=== PATIENT | female | born 1960 | race Caucasian/White ===

== ENCOUNTER 2020-05-15 10:33 | Outpatient (CLI) | payer BC, SELFPAY ==
--- NOTE | ~2020-05-15 | US_ITS ---
EXAMINATION: US venous doppler [facility] DATE: 05/15/2020 11:24 INDICATION: Left lower limb pain. TECHNIQUE: Grayscale ultrasound images without and with compression and Doppler ultrasound images of the left lower extremity veins were obtained. COMPARISON: None. FINDINGS: The visualized portions of left common femoral vein, profunda (deep) femoral vein, femoral vein, popl iteal vein, posterior tibial veins, and greater saphenous vein outflow are patent. IMPRESSION: 1. No deep venous thrombosis. Reviewed, dictated and finalized at location B.
== END 2020-05-15 10:34 | disposition home or self-care (01) ==
PROVIDERS: PCP Internal Medicine; Visit Provider Internal Medicine
DX: R52 Pain, unspecified (principal); R60.9 Edema, unspecified
CPT/HCPCS: 93971

== ENCOUNTER 2020-05-18 10:20 | Outpatient (CLI) | payer BC, SELFPAY ==
--- NOTE | ~2020-05-18 | NM_ITS ---
EXAMINATION: NM teresa stress w perfusion DATE: 05/18/2020 12:41 INDICATION: Chest pain. TECHNIQUE: Rest images were obtained following intravenous administration of 9.1 mCi Tc99m tetrofosmi n (Myoview). The patient was infused intravenously with Lexiscan (Regadenoson). Then, 28.1 mCi Tc99m tetrofosmin (Myoview) was administered intravenously, and stress images were obtained. Data was recon structed into short axis and horizontal and vertical long axis SPECT images. Gated SPECT images were also obtained.: Imaging unable to be obtained due to patient condition. COMPARISON: None. FINDINGS: Small moderate severity nonreversible perfusion defect involving the mid and basilar inferi or segments. Slightly larger moderate to severe nonreversible perfusion defect involving the mid and basilar anterior and mid anterolateral segments. Both lesions are consistent with infarct in the righ t coronary artery and left anterior descending coronary artery vascular distributions respectively. N o reversible ischemia appreciated. There is normal left ventricular chamber size, wall motion and eje ction fraction. Left ventricular ejection fraction measures 69%. IMPRESSION: 1. 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 No reversible ischemia.. 2. Left ventricular ejection fraction measuring 69%. Reviewed, dictated and finalized at location A. IMPRESSION: 1. 2 separate nonreversible infarcts involving portions of the right coronary a rtery and left anterior descending coronary artery vascular distributions. No r eversible ischemia.. 2. Left ventricular ejection fraction measuring 69%.
--- NOTE | 2020-05-18 11:16 | EST_ITS ---
Patient Info Name: Nena Stevens Age: 59 years : 1960 Gender: Female Ht: 70 in Wt: 340 lbs BSA: 2.84 m2 Exam Date: 05/18/2020 11:34 AM Exam Location: [facility] Stress Patient Status: Outpatient Admit Date: 05/18/2020 Staff Ordering Physician: Jamshid Malik DO Attending Provider: Jamshid Malik DO Exercise Technologist: Jennifer Hernandez RDCS Exercise Physician: Lavon Reynolds DO Exam Type: CA stress teresa w NM Study Info Indications R07.9 - Chest pain, unspecified A regadenoson stress test was performed. Summary 1. 1. Negative lexiscan stress test for ischemic ST changes by ECG criteria. 2. 2. Stable hemodynamics throughout the test. 3. 3. Nuclear scan to follow and will be reported separately. Please correlate with it. 4. 4. Patient informed of the above results. Protocol: Lexiscan Stress ECG Details Stage: REST Duration (min): 8 min : 20 sec HR (bpm): 67 SBP (mmHg): 127 DBP (mmHg): 69 Stage: REST Duration (min): 24 min : 3 sec HR (bpm): 67 SBP (mmHg): 127 DBP (mmHg): 69 Stage: STAGE 1 Duration (min): 1 min : 0 sec HR (bpm): 85 SBP (mmHg): 127 DBP (mmHg): 69 Stage: RECOVERY Duration (min): 1 min : 0 sec HR (bpm): 95 SBP (mmHg): 177 DBP (mmHg): 76 Stage: RECOVERY Duration (min): 2 min : 0 sec HR (bpm): 90 SBP (mmHg): 177 DBP (mmHg): 76 Stage: RECOVERY Duration (min): 3 min : 0 sec HR (bpm): 91 SBP (mmHg): 177 DBP (mmHg): 76 Stage: RECOVERY Duration (min): 3 min : 34 sec HR (bpm): 87 SBP (mmHg): 165 DBP (mmHg): 66 Rest HR: 67 bpm Peak HR: 96 bpm Rest Sys BP: 127 mmHg Peak Sys BP: 177 mmHg Max Pred HR: 162 bpm % Max Pred HR: 59 % Target HR: 138 bpm Max RPP: 16,992 bpm*mmHg Termination Reason: Completed protocol Cardiac Symptoms: Shortness of breath Total Time: 1 min : 0 sec Rest Sutherland BP: 69 mmHg Peak Sutherland BP: 76 mmHg Total Dose: 0.4 mg Resting ECG Sinus rhythm. Stress ECG No ST changes. Arrhythmias None. Report Signatures
== END 2020-05-18 10:21 | disposition home or self-care (01) ==
PROVIDERS: PCP Internal Medicine; Visit Provider Internal Medicine
DX: R07.9 Chest pain, unspecified (principal); I21.9 Acute myocardial infarction, unspecified
CPT/HCPCS: 78452; 93017; A9502; J2785

== ENCOUNTER 2020-07-30 12:32 | Outpatient (CLI) | payer BC, SELFPAY ==
--- NOTE | 2020-07-30 13:03 | ECHO_ITS ---
Patient Info Name: Nena Stevens Age: 60 years : 1960 Gender: Female Ht: 70 in Wt: 350 lbs BSA: 2.89 m2 HR: 63 bpm BP: 189 / 109 mmHg Technical Quality: Good Exam Date: 07/30/2020 1:21 PM Exam Location: [facility] Patient Status: Outpatient Admit Date: 07/30/2020 Staff Ordering Physician: Lavon Reynolds DO Early Childhood Teacher Assistant: Gasper Wang, MATTHEW, RT Attending Provider: Lavon Reynolds DO Referring Physician: Rodolfo WATTS; Exam Type: CA echo dop color flow w con Study Info Indications R00.2 - Palpitations Complete two-dimensional, color flow and Doppler transthoracic echocardiogram is performed with contrast to opacify the left ventricle and to improve the deliniation of the left ventricle endocardial borders. Summary 1. Left ventricular chamber dimension is mildly enlarged. 2. Definity contrast administered improved wall motion interpretation. 3. Left ventricular systolic function is normal, estimated at 60-65%. 4. There is mildly increased left ventricular wall thickness. 5. The left ventricular diastolic function is grade I diastolic dysfunction. 6. E/e' 9 is minimally elevated. 7. Global longitudinal strain is abnormal at -10.4%. 8. Left atrial chamber dimension is mildly enlarged. Left Ventricle E/e' 9 is minimally elevated. Global longitudinal strain is abnormal at -10.4%. Definity contrast administered improved wall motion interpretation. Left ventricular chamber dimension is mildly enlarged. Left ventricular systolic function is normal, estimated at 60-65%. There is mildly increased left ventricular wall thickness. The left ventricular diastolic function is grade I diastolic dysfunction. Right Ventricle Right ventricular chamber dimension is normal. Right ventricular systolic function is normal. Left Atria Left atrial chamber dimension is mildly enlarged. Right Atria Right atrial chamber dimension is normal. Aortic Valve The aortic valve is trileaflet. There is no aortic valve stenosis. There is no aortic valve regurgitation. Pulmonic Valve There is no pulmonic regurgitation. Mitral Valve There is no mitral valve stenosis. There is no mitral valve regurgitation. Tricuspid Valve There is no tricuspid valve regurgitation. Pericardium/Pleural There is no pericardial effusion. Inferior Vena Cava Normal inferior vena cava with >50% collapse upon inspiration consistent with normal right atrial pressure, 5 mmHg. Aorta The aortic root size at the sinus of Valsalva is normal. Left Ventricular Outflow Tract Name Value Normal LVOT 2D LVOT Diameter 2.10 cm LVOT Doppler LVOT Peak Gradient 4 mmHg LVOT Mean Gradient 2 mmHg LVOT VTI 24.91 cm LVOT VTI/AV VTI Ratio 0.93 LVOT Stroke Volume 86.17 ml LVOT CO 5.59 l/min LVOT CI 1.94 L/min/m2 Mitral Valve Name Value
[2020-07-30] MEDS: PERFLUTREN LIPID MICROSPHERES 1.5 ML VIAL DILUTED TO 10 ML TOTAL VOLUME IV PUSH (14:12)
== END 2020-07-30 12:33 | disposition home or self-care (01) ==
PROVIDERS: PCP Internal Medicine; Visit Provider Internal Medicine Cardiovascular Disease
DX: R00.2 Palpitations (principal)
CPT/HCPCS: C8929

== ENCOUNTER 2021-01-22 09:58 | Emergency (ER) | payer BC, SELFPAY ==
[2021-01-22] VITALS (14 sets, daily range): BP systolic 128–185; BP diastolic 74–93; PULSE 66–75; RESP 16–22; TEMP 36.4; O2SAT 94–98
--- NOTE | ~2021-01-22 | CT_ITS ---
EXAMINATION: CT abdomen pelvis w con DATE: 01/22/2021 12:59 INDICATION: Left flank pain. Nausea. TECHNIQUE: Computed tomography (CT) of the abdomen and pelvis was performed with 100 mL Omnipaque 350 intravenous contrast. Automated exposure control and iterative reconstruction technique were employe d. The dose-length product was 1607.38 mGy-cm. COMPARISON: CT abdomen and pelvis 02/20/2016 FINDINGS: The visualized portions of the lung bases demonstrate mild atelectasis. No pleural effusion . The heart size is normal. No pericardial effusion. The liver is normal. There are gallstones in the gallbladder, which is distended. The spleen, pancreas, adrenal glands, and left kidney are normal. T here is a 1.9 cm cyst in right kidney. There are no dilated loops of bowel. The appendix is normal. T here are no pathologically enlarged lymph nodes. There is no free intraperitoneal fluid. There is sev ere lumbar spondylosis. IMPRESSION: 1. Cholelithiasis. Gallbladder distention may be secondary to fasting. Correlate with physical exam f or evidence of acute cholecystitis. Reviewed, dictated and finalized at location B. IMPRESSION: 1. Cholelithiasis. Gallbladder distention may be secondary to fasting. Correlat e with physical exam for evidence of acute cholecystitis.
--- NOTE | ~2021-01-22 | US_ITS ---
EXAMINATION: US abdomen limited DATE: 01/22/2021 13:34 INDICATION: Upper abdominal pain. Gallstones. TECHNIQUE: Multiple grayscale and Doppler ultrasound images of the abdomen were obtained. COMPARISON: CT dated 01/22/2021 FINDINGS: The pancreatic head and body are normal in appearance. The pancreatic tail is not visualized. The vi sualized proximal aorta and inferior vena cava are normal. Liver has normal echogenicity and contour, with a smooth surface. No liver lesion identified. No intrahepatic biliary duct dilation suspected. Portal venous flow was seen in the hepatopetal, normal direction and has normal Doppler waveform. Mul tiple small echogenic and shadowing gallstones along the dependent wall of the otherwise normal-appea ring gallbladder. Sonographic Wang sign was reported as negative by the logistical engineer. The common perry e duct measures 3-4 mm in maximal diameter. Right kidney measures 11.1 x 5.3 x 5.8 cm with normal ech ogenicity and contour and no hydronephrosis. IMPRESSION: 1. Cholelithiasis. Reviewed, dictated and finalized at location A. IMPRESSION: 1. Cholelithiasis.
[2021-01-22 10:29] LABS: Basophils Absolute Auto 0.1 K/mm3 (0.0-0.1); Basophils Percent Auto 0.8 % (0.2-1.2); Eosinophils Percent Auto 0.4 % (0-4.4); Hematocrit 41.2 % (37.0-47.0); Hemoglobin 13.1 g/dL (12.0-15.0); Immature Granulocyte Absolute 0.03 K/mm3 (0.00-0.031); Immature Granulocyte Percent A 0.4 % (0-0.5); Lymphocytes Absolute Auto 1.64 K/mm3 (0.9-3.2); Lymphocytes Percent Auto 22.8 % (18.3-44.2); Mean Corpuscular HGB Conc 31.8 g/dl (32-36); Mean Corpuscular Hemoglobin 27.1 pg (26-34); Mean Corpuscular Volume 85.1 fl (80-100); Mean Platelet Volume 10.4 fl (7.4-10.4); Monocytes Absolute Auto 0.4 K/mm3 (0.1-0.6); Monocytes Percent Auto 5.3 % (2.6-8.5); Neutrophils Absolute Auto 5.1 K/mm3 (1.3-6.7); Neutrophils Percent Auto 70.3 % (45.5-73.1); Platelet Count Result 290 k/mm3 (150-375); Red Blood Count 4.84 M/mm3 (4.2-5.4); Red Cell Distribution Width 14.7 % (11.5-14.5); White Blood Count 7.2 K/mm3 (4.5-10.0)
[2021-01-22 10:40] LABS: Anion Gap 7 mmol/L (8-16); Blood Urea Nitrogen 15 mg/dL (7-17); Calcium 8.9 mg/dL (8.4-10.2); Carbon Dioxide 24 mmol/L (22-30); Chloride 106 mmol/L (98-107); Estimated CRCL calculation 123 ml/min; Estimated Glomerular Filt Rate > 60; Glucose 129 mg/dL (65-105); Potassium 4.3 mmol/L (3.4-5.0); Sodium 137 mmol/L (137-145)
[2021-01-22 11:53] LABS: Add Urine Microscopic? YES; Appearance Urine Cloudy (Clear); Bacteria Urine Trace /hpf; Bilirubin Urine Negative (Negative); Blood Urine Negative (Negative); Color Urine Yellow (Yellow); Glucose Urine UA Negative (Negative); Ketones Urine Negative (Negative); Leukocyte Esterase Ur Negative LEU/UL (Negative); Mucus Urine Rare /lpf; Nitrate Urine Negative (Negative); Protein Urine 2+ mg/dL (Negative); RBC Urine 0-2 /hpf (0-2); Specific Grav Ur 1.025 (1.001-1.035); Squamous Epithelial Cell Urine Occasional /hpf (Few); Urobilinogen Urine Negative mg/dL (<2.0); WBC Urine 0-3 /hpf
--- NOTE | 2021-01-22 12:42 | ED.BACK ---
HPI - Back Pain/Injury General Chief Complaint: Back Pain/Injury Stated Complaint: left flank pain Time Seen by Provider: 01/22/21 11:56 Source: patient Mode of arrival: ambulatory Limitations: no limitations History of Present Illness HPI Narrative: This is a 60 year old female that presents to the ER for left flank pain and upper abdominal pain since this morning. The pain is a constant dull ache and intermittently sharp. Associated with nausea. Denies fever, chest pain, shortness of breath, vomiting, or dysuria. Related Data Home Medications Medication Instructions Recorded Confirmed mecobalamin (vitamin B12) 5,000 5,000 mcg PO DAILY tablet 05/14/20 09/03/20 mcg disintegrating tablet Allergies Allergy/AdvReac Type Severity Reaction Status Date / Time cephalexin Allergy Severe rash, Verified 09/03/20 11:05 hives, projectile vomiting propranolol Allergy Severe Seizure Verified 09/03/20 11:05 levofloxacin Allergy Intermediate Hives Verified 09/03/20 11:05 diclofenac Allergy Mild Unknown Verified 09/03/20 11:05 isosorbide Allergy Mild Unknown Verified 09/03/20 11:05 Cephalosporins AdvReac Severe N/V; OUT Verified 09/03/20 11:05 OF BODY FEELING Review of Systems Review of Systems: Narrative: CONSTITUTIONAL: Denies fever CARDIOVASCULAR: Denies chest pain, or edema. RESPIRATORY: Denies dyspnea. GASTROINTESTINAL: Reports abdominal pain, nausea. Denies vomiting, or diarrhea. GENITOURINARY: Denies dysuria or hematuria. SKIN: Denies rash MUSCULOSKELETAL: Reports back pain, joint pain, and myalgia. NEUROLOGIC: Denies numbness, or weakness. All systems reviewed & are unremarkable except as noted in HPI and below PMFSH Past Medical History Medical History (Updated 01/22/21 @ 16:18 by Meagan Llamas PA-C) Hyperlipidemia Hypertension Family History Family History Mother Cerebrovascular accident Sibling Family history of diabetes mellitus in first degree relative Family history of liver disease Social History Social History Smoking packs per day: 1 Smoking cigarettes per day: 20.0 Years smoked: 30 Smoking pack-years: 30.00 Smoking status: Former smoker Tobacco type: cigarettes Second hand tobacco smoke exposure: No Smoking end date: 10/05/07 Alcohol intake: never Substance use: never Gender identity (if verbalized by the patient): Female Exam Narrative: Exam Narrative: GENERAL: Well-appearing, well-nourished, and in no acute distress. HEAD: Normocephalic, atraumatic. EYES: EOMI. CHEST: Clear to auscultation. No respiratory distress. No wheezes rales or rhonchi HEART: Regular rate and rhythm. No murmur heard. Normal peripheral pulses. ABDOMEN: Soft, nondistended, normal active bowel sounds. Mild tenderness palpation epigastrium, without guarding. No CVA tenderness EXTREMITIES: Normal range of motion. No edema. SKIN: Warm, dry, no rash. NEURO: No focal deficits. Alert and oriented x3. Normal gait PSYCH: Normal mood and affect Course Vital Signs Vital signs: Vital Signs Temperature 97.6 F 01/22/21 10:10 Pulse Rate 74 01/22/21 10:10 Respiratory Rate 17 01/22/21 10:10 Blood Pressure 143/87 H 01/22/21 10:10 Pulse Oximetry 98 01/22/21 10:10 Temperature 97.6 F 01/22/21 10:10 Pulse Rate 71 01/22/21 15:00 Respiratory Rate 16 01/22/21 15:00 Blood Pressure 128/87 01/22/21 15:02 Pulse Oximetry 96 01/22/21 15:02 MDM - Back Pain/Injury Lab Data Attestation: I reviewed the patient's lab results. Result diagrams: 01/22/21 10:17 01/22/21 10:17 Labs: Lab Results 01/22/21 01/22/21 01/22/21 Range/Units 10:17 10:17 10:17 WBC 7.2 (4.5-10.0) K/mm3 RBC 4.84 (4.2-5.4) M/mm3 Hgb 13.1 (12.0-15.0) g/dL Hct 41.2 (37.0-47.0) % MCV 85.1 (80-100) fl MCH 27.
--- NOTE | 2021-01-22 12:44 | PC.NURSE ---
Andreina Reese, added on hepatic and lipase [id number]
--- NOTE | 2021-01-22 12:57 | PC.NURSE ---
Pt in ct at this time, will medicate per provider order upon return.
[2021-01-22] MEDS: ONDANSETRON INJ 4 MG/2 ML VIAL IV PUSH (13:04)
[2021-01-22] MEDS: MORPHINE SULFATE (*CRX) 4 MG/ML INJ IV PUSH (13:04)
--- NOTE | 2021-01-22 13:24 | PC.NURSE ---
Pt at ultrasound at this time.
[2021-01-22 13:29] LABS: Alanine Aminotransferase 16 U/L (4-35); Albumin Level 4.2 g/dL (3.5-5.1); Alkaline Phosphatase 98 U/L (38-126); Aspartate Amino Transferase 37 U/L (14-36); Bilirubin,Total 0.5 mg/dL (0.2-1.3); Lipase 43 U/L (23-300)
[2021-01-22] MEDS: diazePAM INJ (*CRX) 10 MG/2 ML SYRINGE 5 MG IV PUSH (15:31)
== END 2021-01-22 16:30 | disposition home or self-care (01) ==
PROVIDERS: Physician Assistant; Emergency Provider Emergency Medicine; PCP Internal Medicine
DX: K80.20 Calculus of gallbladder without cholecystitis without obstruction (principal); Z87.891 Personal history of nicotine dependence; I10 Essential (primary) hypertension; E78.5 Hyperlipidemia, unspecified
CPT/HCPCS: 36415; 74177; 76705; 80048; 80076; 81001; 83690; 85025; 96374; 96375; 99284; J0131; J2270; J2405; J3360; Q9967

== ENCOUNTER 2021-02-24 10:22 | Outpatient (CLI) | payer BC, SELFPAY ==
--- NOTE | ~2021-02-24 | MR_ITS ---
EXAMINATION: MR lumbar spine wo con DATE: 02/24/2021 11:26 INDICATION: Dorsalgia, unspecified. Weakness of the lower extremities. Pain in the legs. TECHNIQUE: Magnetic resonance imaging (MRI) of the lumbar spine was performed without intravenous con trast. Sequences included sagittal T2-weighted FSE, sagittal T2-weighted FS FSE, sagittal T1-weighted FSE, and axial T2-weighted FSE. COMPARISON: Lumbar spine MRI 11/08/2016 FINDINGS: There is 10 degrees levoscoliosis of lumbar spine. There is 3 mm retrolisthesis of L1 on L2 , L2 on L3, and L3 on L4, 3 mm anterolisthesis of L4 on L5, and 4 mm anterolisthesis of L5 on S1. Elda tebral body heights are normal. There is moderately decreased disc height at T12-L1, L1-L2, and L2-L3 , severely decreased disc at L3-L4, moderately decreased disc height at L4-L5, and severely decreased disc height at L5-S1 with endplate remodeling. The distal spinal cord signal intensity is normal. Th e conus medullaris is at L1-L2. The following disc levels are specifically discussed: L1-L2: The disc is bulging. There is moderate right and mild left facet joint osteoarthritis. There i s mild bilateral neural foraminal stenosis. There is mild central canal stenosis. L2-L3: The disc is bulging and has an annular fissure. There is severe right and mild left facet join t osteoarthritis. There is mild bilateral neural foraminal stenosis. There is mild central canal sten osis. L3-L4: The disc is bulging and has an annular fissure. There is severe right and moderate left facet joint osteoarthritis. There is mild bilateral neural foraminal stenosis. There is mild central canal stenosis. L4-L5: The disc is bulging. There is severe bilateral facet joint osteoarthritis. There is moderate r ight and mild left neural foraminal stenosis. There is moderate central canal stenosis. L5-S1: The disc is bulging and has an annular fissure. There is ankylosis of the facet joints with se pavan hypertrophy. There is mild bilateral neural foraminal stenosis. There is mild central canal sten osis. IMPRESSION: 1. Severe lumbar spondylosis, stable from 11/08/2016. 2. Lumbar levoscoliosis. Reviewed, dictated and finalized at location B.
== END 2021-02-24 10:23 | disposition home or self-care (01) ==
PROVIDERS: PCP Internal Medicine; Visit Provider Internal Medicine
DX: M47.817 Spondylosis without myelopathy or radiculopathy, lumbosacral region (principal); M48.07 Spinal stenosis, lumbosacral region
CPT/HCPCS: 72148

== ENCOUNTER → 2021-03-11 00:29 | Outpatient (CLI) | payer BC, SELFPAY ==
[2021-03-11 21:52] LABS: SARS-CoV-2 RNA PCR Negative
== END ==
PROVIDERS: PCP Internal Medicine; Visit Provider Surgery
DX: Z01.812 Encounter for preprocedural laboratory examination (principal); Z20.822 Contact with and (suspected) exposure to COVID-19
CPT/HCPCS: C9803; U0003; U0005

== ENCOUNTER 2021-03-11 08:11 | Outpatient (CLI) | payer BC, SELFPAY ==
[2021-03-11 09:10] LABS: Alanine Aminotransferase 16 U/L (4-35); Albumin Level 3.9 g/dL (3.5-5.1); Alkaline Phosphatase 97 U/L (38-126); Amylase 44 U/L (30-110); Aspartate Amino Transferase 20 U/L (14-36); Bilirubin,Total 0.2 mg/dL (0.2-1.3); Lipase 54 U/L (23-300)
== END 2021-03-11 08:12 | disposition home or self-care (01) ==
LOC: ANHSURGERY 08:13
PROVIDERS: PCP Internal Medicine; Visit Provider Surgery
DX: K80.10 Calculus of gallbladder with chronic cholecystitis without obstruction (principal); Z53.31 Laparoscopic surgical procedure converted to open procedure; Z01.812 Encounter for preprocedural laboratory examination
CPT/HCPCS: 36415; 80076; 82150; 83690; 86850; 86900; 86901

== ENCOUNTER 2021-03-14 18:10 | Observation (INO) | payer BC, SELFPAY ==
[2021-03-07 16:14] VITALS: BMI 50.3
--- NOTE | 2021-03-13 09:10 | WPDANESEPPF ---
Anes - Initial Pre Proc Eval Procedure: Operation Date: 03/14/21 13:00 Proposed Procedures p Laparoscopic Cholecystectomy - Simran Orellana MD Date/Time: 03/13/21 09:10 Surgeon: Simran Orellana MD Pre Op Diagnosis: chronic cholecystitis Patient Data Age: 60 Gender: F Height: 1.78 m Weight: 159 kg Allergies Allergy/AdvReac Type Severity Reaction Status Date / Time cephalexin Allergy Severe rash, Verified 03/05/21 15:23 hives, projectile vomiting isosorbide Allergy Severe Seizure Verified 03/14/21 11:07 propranolol Allergy Severe Seizure Verified 03/05/21 15:23 levofloxacin Allergy Intermediate Hives Verified 03/05/21 15:23 diclofenac Allergy Mild Gastrointestinal Verified 03/14/21 11:07 Upset Cephalosporins AdvReac Intermediate N/V; OUT Verified 03/14/21 11:07 OF BODY FEELING/hives Home Medications Medication Instructions Recorded Confirmed Type omeprazole 20 mg capsule,delayed 20 mg PO DAILY #90 cap 10/02/20 03/14/21 Rx release diazepam 10 mg tablet 10 mg PO DAILY PRN #30 tablet 11/07/20 03/14/21 Rx metoprolol succinate 100 mg 100 mg PO DAILY #90 tablet 02/04/21 03/14/21 Rx tablet,extended release 24 hr hydrocodone 10 mg-acetaminophen 1 tablet PO Q6H PRN #28 tablet 02/22/21 03/14/21 Rx 325 mg tablet Other Studies: Slasher Tender:: 07/24/20 CTA heart at [facility]: Plaque in origin of RCA but no significant stenosis; calcium score 7. Echo/MUGA:: 07/30/20 Echo: EF 60-65%, mild LVH, grade I diastolic dysfunction (E/e' 9), mild LAE. Electrophysiology:: 07/06/20 28 days event monitor: Sinus rhythm, HR range 50-156 bpm; average 76 bpm; <1% PAC's and PVC's; 5 SVT, fastest at 156 bpm and longest lasting 24 beats. 07/06/20 EKG: Sinus rhythm. Exam Date: 07/30/2020 1:21 PM Exam Type: CA echo dop color flow w con Complete two-dimensional, color flow and Doppler transthoracic echocardiogram is performed with contrast to opacify the left ventricle and to improve the deliniation of the left ventricle endocardial borders. Summary 1. Left ventricular chamber dimension is mildly enlarged. 2. Definity contrast administered improved wall motion interpretation. 3. Left ventricular systolic function is normal, estimated at 60-65%. 4. There is mildly increased left ventricular wall thickness. 5. The left ventricular diastolic function is grade I diastolic dysfunction. 6. E/e' 9 is minimally elevated. 7. Global longitudinal strain is abnormal at -10.4%. 8. Left atrial chamber dimension is mildly enlarged. Date of Service: 05/18/20 Procedure(s): NM teresa stress w perfusion FINDINGS: Small moderate severity nonreversible perfusion defect involving the mid and basilar inferior segments. Slightly larger moderate to severe nonreversible perfusion defect involving the mid and basilar anterior and mid anterolateral segments. Both lesions are consistent with infarct in the right coronary artery and left anterior descending coronary artery vascular distributions respectively. No reversible ischemia appreciated. There is normal left ventricular chamber size, wall motion and ejection fraction. Left ventricular ejection fraction measures 69%. IMPRESSION: 1. 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 No reversible ischemia.. 2. Left ventricular ejection fraction measuring 69%. Patient hx anesthesia problems: none Family hx anesthesia problems: none [facility] Past Medical History Medical History (Updated 03/13/21 @ 09:22 by Adeel Caldwell MD) Arthritis Asthma BMI 50.0-59.9, adult CAD (coronary artery disease) Chronic low back pain Gall stones Gallbladder disorder GERD (gastroesophageal reflux disease) Hyperlipidemia Hypersomnia Hypertension Lower extremity surgery planned Morbid obesity Morbid obesity with BMI of 50.0-59.9, adult PSVT (paroxysmal supraventricular tachycardia)
[2021-03-14] VITALS (22 sets, daily range): BP systolic 134–179; BP diastolic 61–95; PULSE 61–79; RESP 12–20; TEMP 36.3–36.6; O2SAT 93–98; BMI 51.5
[2021-03-14] MEDS: ACETAMINOPHEN 500 MG TABLET 1000 MG PO (11:33)
[2021-03-14] MEDS: LACTATED RINGERS 1,000 ML 30 ML IV CONT ×3 (11:54→16:45)
--- NOTE | 2021-03-14 12:02 | WPDHPUPDATE1 ---
History and Physical Update Update Date/Time: 03/14/21 12:02 History and Physical has been reviewed, including an updated exam of the patient. There are NO changes in the patient's condition. Risks, benefits, and alternatives have been discussed and questions answered. Patient agrees to proceed with procedure.
[2021-03-14] MEDS: KETOROLAC 15 MG/ML VIAL (*BKC) IV PUSH (12:14)
[2021-03-14] MEDS: CLINDAMYCIN 900 MG/D5W 50 ML 900 MG/50 ML PIGGYBACK 50 MG IVPB (13:20)
[2021-03-14] MEDS: BUPIVACAINE/EPINEPHRINE 0.5% 10 ML VIAL 50 ML INFILTRATE (13:54)
[2021-03-14] MEDS: HYDROmorphone HCL INJ (*CRX) 1 MG/ML SYR 0.25 MG IV PUSH ×12 (14:49→16:58)
--- NOTE | 2021-03-14 14:49 | W.PM.PROC2 ---
Procedure Note - Detailed Date of Procedure 03/14/21 Pre-op Diagnosis cholecystitis, cholelithiasis Post-op Diagnosis same Procedure Performed Laparoscopic cholecystectomy Surgeon Simran Orellana MD Anesthesia general Indications 60-year-old female presented to the office complaining of postprandial right upper quadrant abdominal pain associated with nausea and vomiting. Workup including imaging significant for cholecystitis, cholelithiasis. Findings Cholecystitis with cholelithiasis Description of Procedure The patient was taken to the operating room placed in the supine position. After adequate induction of general anesthesia, the patient was prepped and draped in normal sterile fashion. A time-out was then performed to verify the patient's identity as well as the procedure being performed. I then made a 5 mm incision in the infraumbilical region. Through this, a Veress needle was placed into the peritoneal cavity and CO2 gas was then insufflated. After adequate pneumoperitoneum was achieved, the Veress needle was removed and a 5 mm optiview trocar was placed through this incision under direct visualization. I then placed the laparoscope through this trocar site and under direct visualization placed a further 12 mm subxiphoid port as well as 2 additional 5 mm ports in the right upper abdomen. The gallbladder was then identified and was noted to be moderately inflamed, distended, and full of gallstones. I was able to place a grasper at the dome of the gallbladder and this was retracted anterior and cephalad up over the liver. A 2nd retractor was then placed at the infundibulum and retracted laterally, this allowed visualization of the triangle of Calot. I then was able to visualize the cystic duct in its entirety from its proximal insertion into the gallbladder, to its distal junction with the common hepatic/common bile duct junction. At this point, I carefully skeletonized the proximal cystic duct with the [place] dissector. I then clipped and transected the proximal cystic duct. Next I visualized the cystic artery. Again the artery was skeletonized, clipped, and transected. I then used the Bovie cautery to take down the peritoneal attachments of the gallbladder off the liver bed. This was somewhat difficult given the amount of inflammation in the posterior space. Once the gallbladder specimen was completely detached, an endo-pouch was placed through the 12 mm port site. I then placed the gallbladder specimen into the Endo pouch and removed the endo-pouch from the 12 mm port site. The specimen will now be sent to pathology for further review. I then copiously irrigated the right upper quadrant. Some mild oozing was noted in the liver bed and this was controlled with the bovie cautery. I then placed some hemostatic powder in the liver bed. Hemostasis was noted in the liver bed, the clips were noted to be in good position on both the cystic duct stump and the cystic artery stump. No other pathology was noted in the right upper quadrant. I then moved the laparoscope to the subxiphoid port. No iatrogenic injury or other pathology was noted in the lower abdomen. I then closed the 12 mm trocar site under direct visualization using the Ghulam cone and 0 Vicryl suture. At this point, the abdomen was desufflated and all ports removed. All port sites were then closed with 4.O Monocryl subcuticular sutures. Dermabond was placed on each incision. The patient tolerated the procedure well, was extubated in the operating room postoperative and will be transferred to the recovery room in stable condition Estimated Blood Loss 20 Drains No Packing No Pathology yes Complications No immediate complications Condition stable Disposition PACU
[2021-03-14] MEDS: fentaNYL CITRATE INJ (*CRX) 100 MCG/2 ML VIAL 25 MCG IV PUSH ×14 (15:12→17:52)
[2021-03-14] MEDS: ONDANSETRON INJ 4 MG/2 ML VIAL IV PUSH (15:39)
--- NOTE | 2021-03-14 16:49 | SUR.PHASEI ---
4418- Call to Dr. Orellana to notify him patient experiencing pain to abdomen with no relief from 2.5MG dilaudid IV push and 275MCG fentanyl with stable vital signs. Spoke with Dr. Caldwell, anesthesiologist to obtain additional orders for pain medication. Orders increased for pain medication 4MG dilaudid and 400MCG fentanyl max dosing per Dr. Caldwell. Per Dr. Orellana administer pain medication and continue to monitor patient closely. Notify Dr. Orellana if pain does not subside.
--- NOTE | 2021-03-14 17:57 | SUR.PHASEII ---
2215- Call to Dr. Orellana to notify him patient experiencing pain to right abdomen surgical site despite IV medications being given. A total of 350MCG of fentanyl IVP given to patient at this time and 3MG total of dilaudid IVP. Patient given 50MCG fentanyl IVP in outpatient recovery with no relief to pain and patient not maintaining oxygen saturations on room air. Patient placed on 2 liters nasal cannula and maintaining oxygen saturation in mid to high 90's with vitals being stable otherwise. Clarified with Dr. Orellana the plan of care for patient and obtained orders for patient to be admitted to med/surg overnight for observation to help with pain control and monitoring of vital signs. Per Dr. Orellana this RN to place orders for diet- ADAT; clear liquids to heart healthy beginning with dinner, blood work for 6/11 AM- CBC and BMP, pain medication regimen- Dilaudid 1MG IVP Q2HR PRN for pain rated 7-10, 2 [place] 5-325MG tablets PO PRN pain rated 4-6. 0568- Patient and [place] updated on plan and agree with Dr. Orellana's orders to stay overnight for observation and pain control.
--- NOTE | 2021-03-14 19:00 | ADMGEN ---
This patient, Nena Stevens, was admitted to -. Patient/family oriented to hospital policies and general routines including ID bracelet, bed and alarms, visiting hours, pain management, procedures, bathroom and other care routines, personal items, smoking policy, room service/diet, and visiting hours. Information on how to activate the Rapid Response Team has been discussed. Patient/Family are encouraged to report perceived risks to care and to ask questions if they do not understand what they are told or what they should do.
[2021-03-14] MEDS: HYDROmorphone HCL INJ (*CRX) 1 MG/ML SYR IV PUSH (19:54)
[2021-03-14] MEDS: HYDROcodone/acetaminophen (*CRX) 5-325 MG TABLET 2 TAB PO (20:52)
[2021-03-15] MEDS: HYDROmorphone HCL INJ (*CRX) 1 MG/ML SYR IV PUSH (02:42)
[2021-03-15 05:50] VITALS: BP 146/68; PULSE 67; RESP 22; TEMP 36.3; O2SAT 96
[2021-03-15 06:06] LABS: Basophils Percent Auto 0.2 % (0.2-1.2); Hematocrit 40.1 % (37.0-47.0); Hemoglobin 12.7 g/dL (12.0-15.0); Immature Granulocyte Absolute 0.07 K/mm3 (0.00-0.031); Immature Granulocyte Percent A 0.6 % (0-0.5); Lymphocytes Absolute Auto 0.82 K/mm3 (0.9-3.2); Lymphocytes Percent Auto 7.2 % (18.3-44.2); Mean Corpuscular HGB Conc 31.7 g/dl (32-36); Mean Corpuscular Hemoglobin 27.1 pg (26-34); Mean Corpuscular Volume 85.7 fl (80-100); Mean Platelet Volume 10.7 fl (7.4-10.4); Monocytes Absolute Auto 0.6 K/mm3 (0.1-0.6); Platelet Count Result 303 k/mm3 (150-375); Red Blood Count 4.68 M/mm3 (4.2-5.4); White Blood Count 11.4 K/mm3 (4.5-10.0)
[2021-03-15 06:21] LABS: Anion Gap 10 mmol/L (8-16); Blood Urea Nitrogen 17 mg/dL (7-17); Calcium 8.5 mg/dL (8.4-10.2); Carbon Dioxide 23 mmol/L (22-30); Chloride 107 mmol/L (98-107); Estimated CRCL calculation 125 ml/min; Estimated Glomerular Filt Rate > 60; Glucose 136 mg/dL (65-105); Potassium 4.7 mmol/L (3.4-5.0); Sodium 140 mmol/L (137-145)
--- NOTE | 2021-03-15 08:29 | WPDANESPN ---
Anes - Prog Note Post-Op Date/Time: 03/15/21 08:29 Cardiovascular status: normal Respiratory status: normal Airway patency: baseline Mental status: baseline Post-Op hydration status: normal Vital Signs: Last Vital Signs Temp 36.3 C L 03/15/21 05:50 Pulse 67 03/15/21 05:50 Resp 22 H 03/15/21 05:50 BP 146/68 H 03/15/21 05:50 Pulse Ox 96 03/15/21 05:50 Pain Score (VAS): none I/O: Intake & Output 03/14/21 03/15/21 03/15/21 23:59 07:59 15:59 Intake Total 700 280 Output Total 350 Balance 700 -70 Laboratory Tests 03/15/21 05:43 03/15/21 05:43 03/15/21 03/15/21 05:43 05:43 WBC 11.4 H RBC 4.68 Hgb 12.7 Hct 40.1 MCV 85.7 MCH 27.1 MCHC 31.7 L RDW 15.0 H Plt Count 303 MPV 10.7 H Immature Gran % (Auto) 0.6 H Neut % (Auto) 87.0 H Lymph % (Auto) 7.2 L [place] % (Auto) 5.0 Eos % (Auto) 0.0 Baso % (Auto) 0.2 Lymph # (Auto) 0.82 L [place] # (Auto) 0.6 Eos # (Auto) 0.0 Baso # (Auto) 0.0 Abs Immat Gran (auto) 0.07 H Absolute Neuts (auto) 10.0 H Absolute Nucleated RBC 0.0 Nucleated RBC % 0.0 Sodium 140 Potassium 4.7 Chloride 107 Carbon Dioxide 23 Anion Gap 10 BUN 17 Creatinine 0.70 Estim Creat Clear Calc 125 Estimated GFR > 60 Glucose 136 H Calcium 8.5 Post-procedural complaints: none Patient Feedback: Patient satisfied with anesthetic care.
[2021-03-15 08:58] VITALS: BP 159/70; PULSE 72; RESP 20; TEMP 36.8; O2SAT 96
[2021-03-15 09:26] VITALS: O2SAT 94
[2021-03-15 09:53] VITALS: O2SAT 93
--- NOTE | 2021-03-15 10:20 | PM.DS ---
DS: Admitting Diagnosis Admitting Diagnosis Admitting Diagnosis: cholecystitis with cholelithiasis DS: Discharge Diagnosis Discharge Diagnosis (1) Cholecystitis with cholelithiasis: Code(s): K80.10 - Calculus of gallbladder with chronic cholecystitis without obstruction Status: Acute Assessment and Plan: status post laparoscopic cholecystectomy, instructions given for local wound care and routine postop care, Rx for analgesia, up 2 weeks (2) Morbid obesity: Code(s): E66.01 - Morbid (severe) obesity due to excess calories Status: Acute Assessment and Plan: lifestyle and dietary modifications DS: Summary Hospital Course Reason for hospitalization: cholecystitis with cholelithiasis Hospital Course: Patient is a 60-year-old female that initially presented to my office with cholecystitis and cholelithiasis. The patient was quite symptomatic and given this I set her up for cholecystectomy. The patient presented to the hospital on 03/14/2021 for laparoscopic cholecystectomy, please see full operative report for details. Postoperatively, the patient complained of significant pain. Because of the pain she was admitted for observation to the surgical floor. On postoperative day 1, the patient reports that her pain is much better controlled. The patient was able to tolerate a heart healthy diet without issue. Patient has been up and ambulatory, also without issue. She will be sent home at this time with p.o. analgesia and instructions for routine postoperative care. Will follow up with me in 2 weeks. Status at Discharge Functional status at discharge: independent ambulation Overall status at discharge: patient is progressing back to baseline Time Spent with Patient Time attestation: Total time spent providing and/or coordinating discharge services: Time spent: Less than 30 minutes Exam Const: General: cooperative, comfortable and no acute distress Nutritional Appearance: obese Orientation/consciousness: patient oriented x3 Limitations: no limitations Resp: Effort & Inspection: normal respiratory effort Auscultation: clear to auscultation bilaterally Cardio: Rate: regular rate Rhythm: regular rhythm GI: Inspection: normal to inspection, distended and incision GI Palp: Yes Soft to palpation and Yes Tenderness to palpation present (GI) Other: soft, sl dist, radha TTP, incisions C/D/I DS: Data Data Completed and Pending Pending studies at discharge: Pending at discharge 03/14/21 13:55 Surgical [PTH] Routine Labs on day of discharge: Labs from last 24 hours 03/15/21 03/15/21 05:43 05:43 WBC 11.4 H RBC 4.68 Hgb 12.7 Hct 40.1 MCV 85.7 MCH 27.1 MCHC 31.7 L RDW 15.0 H Plt Count 303 MPV 10.7 H Immature Gran % (Auto) 0.6 H Neut % (Auto) 87.0 H Lymph % (Auto) 7.[address] [place] % (Auto) 5.0 Eos % (Auto) 0.0 Baso % (Auto) 0.2 Lymph # (Auto) 0.[address] [place] # (Auto) 0.6 Eos # (Auto) 0.0 Baso # (Auto) 0.0 Abs Immat Gran (auto) 0.07 H Absolute Neuts (auto) 10.0 H Absolute Nucleated RBC 0.0 Nucleated RBC % 0.0 Sodium 140 Potassium 4.7 Chloride 107 Carbon Dioxide 23 Anion Gap 10 BUN 17 Creatinine 0.70 Estim Creat Clear Calc 125 Estimated GFR > 60 Glucose 136 H Calcium 8.5 Discharge Plan Discharge Attending physician on discharge: Sirman Orellana Discharging Clinician: Simran Orellana Anticipated Discharge Date/Time: 03/15/21 14:00 Patient Disposition: Home, Self-Care Activity: other - see discharge instructions Diet: other - see discharge instructions Wound Care Instructions: follow printed instructions Discharge Instructions: DISCHARGE INSTRUCTION SHEET FOR HERNIA, GALLBLADDER AND APPENDIX SURGERIES DR. ORELLANA PATIENT TO TAKE HOME 1. May shower in 24 hours, no soaking in bath x 2weeks. 2. Call office for: Wound increasingly painful or bleeding Vomiting Fever of g
[2021-03-15] MEDS: HYDROcodone/acetaminophen (*CRX) 5-325 MG TABLET 2 TAB PO (10:40)
[2021-03-15 11:00] VITALS: O2SAT 92
--- NOTE | 2021-03-15 13:28 | PC.NURSE ---
On 03/15/21, the student, [Cherri Carias ], provided care and completed [facility] documentation on this patient. I have reviewed the student's documentation and agree with the findings.
[2021-03-15 13:37] VITALS: BP 139/70; PULSE 81; RESP 20; TEMP 36.6; O2SAT 93
== END 2021-03-15 15:37 | disposition home or self-care (01) ==
LOC: ANH3MED 19:10
PROVIDERS: Admitting Provider Surgery; PCP Internal Medicine; Visit Provider Surgery
PROC: 0FT44ZZ Resection of Gallbladder, Percutaneous Endoscopic Approach (ICD-10-PCS; CPT 47562; principal; 2021-03-14 13:00)
DX: K80.10 Calculus of gallbladder with chronic cholecystitis without obstruction (principal); J45.909 Unspecified asthma, uncomplicated; K21.9 Gastro-esophageal reflux disease without esophagitis; E78.5 Hyperlipidemia, unspecified; I10 Essential (primary) hypertension; Z90.710 Acquired absence of both cervix and uterus; Z87.891 Personal history of nicotine dependence
CPT/HCPCS: 47562; 36415; 80048; 85025; 88304; A9270; G0378; J1170; J1885; J2250; J2405; J3010; J7030; J7120

== ENCOUNTER → 2021-10-15 00:52 | Outpatient (CLI) | payer BC, SELFPAY ==
[2021-10-15 15:24] LABS: SARS-CoV-2 RNA PCR Positive
== END ==
PROVIDERS: PCP Internal Medicine; Visit Provider Internal Medicine Gastroenterology
DX: Z01.812 Encounter for preprocedural laboratory examination (principal); U07.1 COVID-19
CPT/HCPCS: C9803; U0003; U0005

== ENCOUNTER 2021-11-29 01:14 | Day surgery (SDC) | payer BC, SELFPAY ==
[2021-10-03 13:16] VITALS: BMI 47.4
--- NOTE | 2021-10-16 08:53 | SUR.PREOP ---
Spoke with Dr. Earl vis telephone regarding patient's positive Covid results on 10/15/21. Dr. Earl agreed to re-schedule patient for 4 weeks. Patient then called and given results of her Covid test. Patient stated it was negative per her portal results. I reconfirmed her lab results with her on the phone by pulling up her results again to double check. Patient was re-scheduled for 11-22-20 at 1030 am with an arrival time of 9 am. No other questions voiced at this time.
[2021-11-08 13:12] VITALS: BMI 47.4
--- NOTE | 2021-11-28 16:22 | PM.HPGS ---
History of Present Illness History of Present Illness Consent: Risks, benefits, and alternatives have been discussed and questions answered. Patient agrees to proceed with procedure. Chief complaint: dysphagia Narrative: Nena Stevens is a 61 year old female with dysphagia. Food, even water will seem to get caught in the throat as if it wants to go the wrong way. She has not had any sensation of food getting impacted her chest or where she had to leave the table. Sometime she can expectorate what isn't going down the Review of Systems Review of Systems: All systems reviewed & are unremarkable except as noted in HPI and below PMFSH Past Medical History Medical History Arthritis Asthma BMI 50.0-59.9, adult CAD (coronary artery disease) Chronic low back pain Gall stones Gallbladder disorder GERD (gastroesophageal reflux disease) Hyperlipidemia Hypersomnia Hypertension Lower extremity surgery planned Morbid obesity Morbid obesity with BMI of 50.0-59.9, adult PSVT (paroxysmal supraventricular tachycardia) Surgical History Surgical History H/O neck surgery H/O tubal ligation H/O: hysterectomy History of bilateral knee arthroplasty History of carpal tunnel surgery bilateral S/P laparoscopic cholecystectomy 03/14/21 Family History Family History Mother Heart disease Hypertension Alzheimer disease Diabetes mellitus Cerebrovascular accident Thyroid disorder Sibling Family history of diabetes mellitus in first degree relative Family history of liver disease Diabetes mellitus Hypertension Heart attack Father Hypertension Heart attack Heart disease Grandparent Carcinoma of colon Hypertension Heart disease Grandparent Lung cancer Social History Social History Smoking packs per day: 1 Smoking cigarettes per day: 20.0 Years smoked: 36 Smoking pack-years: 36.00 Smoking status: Former smoker Tobacco type: cigarettes Second hand tobacco smoke exposure: No Smoking end date: 10/05/09 Alcohol intake: current Substance use: current Substance use type: opiates Last use: 3 DAYS Living arrangements: with family Additional occupation/education comments: Disability Gender identity (if verbalized by the patient): Female Sexual Orientation (if Verbalized by the Patient): Straight or Heterosexual Spiritual care concerns: No Meds Home Medications and Allergies Home Medications Medication Instructions Recorded Confirmed Type metoprolol succinate 100 mg 100 mg PO DAILY #90 tablet 08/27/21 11/08/21 Rx tablet,extended release 24 hr diazepam 10 mg tablet 10 mg PO DAILY PRN #30 tablet 09/16/21 11/08/21 Rx hydrocodone 7.5 mg-acetaminophen 1 tablet PO Q12H PRN #60 tablet 09/16/21 11/08/21 Rx 325 mg tablet omeprazole 20 mg capsule,delayed 20 mg PO DAILY #90 cap 09/16/21 11/08/21 Rx release duloxetine 30 mg PO DAILY 10/03/21 11/08/21 History Allergies Allergy/AdvReac Type Severity Reaction Status Date / Time cephalexin Allergy Severe rash, Verified 11/29/21 07:12 hives, projectile vomiting isosorbide Allergy Severe Seizure Verified 11/29/21 07:12 propranolol Allergy Severe Seizure Verified 11/29/21 07:12 levofloxacin Allergy Intermediate Hives Verified 11/29/21 07:12 diclofenac Allergy Mild Gastrointestinal Verified 11/29/21 07:12 Upset Cephalosporins AdvReac Intermediate N/V; OUT Verified 11/29/21 07:12 OF BODY FEELING/hives Exam Const: General: alert Nutritional Appearance: obese Orientation/consciousness: patient oriented x3 Resp: Auscultation: clear to auscultation bilaterally Cardio: Rhythm: regular rhythm GI: GI Palp: Yes Soft to palpation and No Tenderness to palpation present (GI) Neur
[2021-11-29 07:15] VITALS: BP 170/87; PULSE 73; RESP 23; TEMP 36.3; O2SAT 96
[2021-11-29] MEDS: LACTATED RINGERS 1,000 ML 150 ML IV CONT (07:26)
--- NOTE | 2021-11-29 07:53 | WPDANESEPPF ---
Anes - Initial Pre Proc Eval Procedure: Operation Date: 11/29/21 08:30 Proposed Procedures p Esophagogastroduodenoscopy - Fabien Earl MD Date/Time: 11/29/21 07:53 Surgeon: Fabien Earl MD Pre Op Diagnosis: dysphagia Patient Data Age: 61 Gender: F Height: 1.8 m Weight: 150.9 kg Last Vital Signs Temp 36.3 C L 11/29/21 07:15 Pulse 73 11/29/21 07:15 Resp 23 H 11/29/21 07:15 BP 170/87 H 11/29/21 07:15 Pulse Ox 96 11/29/21 07:15 Allergies Allergy/AdvReac Type Severity Reaction Status Date / Time cephalexin Allergy Severe rash, Verified 11/29/21 07:12 hives, projectile vomiting isosorbide Allergy Severe Seizure Verified 11/29/21 07:12 propranolol Allergy Severe Seizure Verified 11/29/21 07:12 levofloxacin Allergy Intermediate Hives Verified 11/29/21 07:12 diclofenac Allergy Mild Gastrointestinal Verified 11/29/21 07:12 Upset Cephalosporins AdvReac Intermediate N/V; OUT Verified 11/29/21 07:12 OF BODY FEELING/hives Home Medications Medication Instructions Recorded Confirmed Type metoprolol succinate 100 mg 100 mg PO DAILY #90 tablet 08/27/21 11/08/21 Rx tablet,extended release 24 hr diazepam 10 mg tablet 10 mg PO DAILY PRN #30 tablet 09/16/21 11/08/21 Rx hydrocodone 7.5 mg-acetaminophen 1 tablet PO Q12H PRN #60 tablet 09/16/21 11/08/21 Rx 325 mg tablet omeprazole 20 mg capsule,delayed 20 mg PO DAILY #90 cap 09/16/21 11/08/21 Rx release duloxetine 30 mg PO DAILY 10/03/21 11/08/21 History Patient hx anesthesia problems: post op nausea/vomiting Family hx anesthesia problems: none Results Review: All pre-operative results and documents have been reviewed as part of the pre-operative evaluation. [facility] Past Medical History Medical History Arthritis Asthma BMI 50.0-59.9, adult CAD (coronary artery disease) Chronic low back pain Gall stones Gallbladder disorder GERD (gastroesophageal reflux disease) Hyperlipidemia Hypersomnia Hypertension Lower extremity surgery planned Morbid obesity Morbid obesity with BMI of 50.0-59.9, adult PSVT (paroxysmal supraventricular tachycardia) Surgical History Surgical History H/O neck surgery H/O tubal ligation H/O: hysterectomy History of bilateral knee arthroplasty History of carpal tunnel surgery bilateral S/P laparoscopic cholecystectomy 03/14/21 Family History Family History Mother Heart disease Hypertension Alzheimer disease Diabetes mellitus Cerebrovascular accident Thyroid disorder Sibling Family history of diabetes mellitus in first degree relative Family history of liver disease Diabetes mellitus Hypertension Heart attack Father Hypertension Heart attack Heart disease Grandparent Carcinoma of colon Hypertension Heart disease Grandparent Lung cancer Social History Social History Smoking packs per day: 1 Smoking cigarettes per day: 20.0 Years smoked: 36 Smoking pack-years: 36.00 Smoking status: Former smoker Tobacco type: cigarettes Second hand tobacco smoke exposure: No Smoking end date: 10/05/09 Alcohol intake: current Substance use: current Substance use type: opiates Last use: 3 DAYS Living arrangements: with family Additional occupation/education comments: Disability Gender identity (if verbalized by the patient): Female Sexual Orientation (if Verbalized by the Patient): Straight or Heterosexual Spiritual care concerns: No Anes - Eval Final PreProcedure Day of Procedure 11/29/21 07:53 Patient weight: morbidly obese Heart: regular rate and rhythm Lungs: clear to auscultation Airway: Mallampati scale class II Neurological: alert and oriented Last oral intake: >/= 8 hours ASA c
[2021-11-29 08:48] VITALS: BP 117/81; PULSE 72; RESP 25; O2SAT 97
[2021-11-29 08:58] VITALS: BP 109/70; PULSE 66; RESP 20; O2SAT 95
[2021-11-29 09:08] VITALS: BP 149/83; PULSE 61; RESP 20; O2SAT 97
== END 2021-11-29 09:25 | disposition home or self-care (01) ==
PROVIDERS: PCP Internal Medicine; Visit Provider Internal Medicine Gastroenterology
PROC: 0DJ08ZZ Inspection of Upper Intestinal Tract, Via Natural or Artificial Opening Endoscopic (ICD-10-PCS; CPT 43235; principal; 2021-11-29 08:30)
DX: R13.19 Other dysphagia (principal); K21.00 Gastro-esophageal reflux disease with esophagitis, without bleeding; M19.90 Unspecified osteoarthritis, unspecified site; J45.909 Unspecified asthma, uncomplicated; I25.10 Atherosclerotic heart disease of native coronary artery without angina pectoris; E78.5 Hyperlipidemia, unspecified; G47.10 Hypersomnia, unspecified; I10 Essential (primary) hypertension; I47.1 Supraventricular tachycardia; Z87.891 Personal history of nicotine dependence; E66.01 Morbid (severe) obesity due to excess calories; Z68.42 Body mass index [BMI] 45.0-49.9, adult
CPT/HCPCS: 43239; 88305; 88313; J2704; J7120

== ENCOUNTER 2022-01-20 13:58 | Outpatient (CLI) | payer BC, SELFPAY ==
--- NOTE | ~2022-01-20 | XR_ITS ---
EXAMINATION: XR hip RT min 2V DATE: 01/20/2022 14:25 INDICATION: Right hip pain. TECHNIQUE: 2 views of right hip were obtained. COMPARISON: Right hip radiographs 11/23/2015 FINDINGS: Bone alignment is normal. No fracture right hip joint space is normal. Osteitis pubis is no hardy. IMPRESSION: 1. Normal right hip joint. Reviewed, dictated and finalized at location B. IMPRESSION: 1. Normal right hip joint.
== END 2022-01-20 13:59 | disposition home or self-care (01) ==
PROVIDERS: PCP Internal Medicine; Visit Provider Internal Medicine
DX: M25.551 Pain in right hip (principal)
CPT/HCPCS: 73502

== ENCOUNTER 2022-03-25 08:27 | Emergency (ER) | payer BC, SELFPAY ==
[2022-03-25] VITALS (29 sets, daily range): BP systolic 108–149; BP diastolic 63–83; PULSE 68–86; RESP 12–27; TEMP 36.4; O2SAT 90–97
--- NOTE | ~2022-03-25 | CT_ITS ---
EXAMINATION: CTA chest PE protocol DATE: 03/25/2022 11:52 INDICATION: Chest pain TECHNIQUE: Computed tomography angiography (CTA) of the chest was performed with 100 mL Omnipaque-300 intravenous contrast timed to evaluate the pulmonary arteries. Coronal maximum intensity projection 3D-reconstructions were created by the technologist. The dose-length product (DLP) was 890.27 mGy-cm. Automated exposure control and iterative reconstruction technique were employed. COMPARISON: None. FINDINGS: The pulmonary arteries are well-opacified. No pulmonary embolism is identified. Cardiomegal y is noted. There are airspace opacities with a mid and lower lung zone predominance. Interlobular se ptal thickening is noted in the same distribution. There is a small left pleural effusion. No pneumot horax is identified. There is mild mediastinal and bilateral hilar lymphadenopathy. There is mild tho racic spondylosis. IMPRESSION: 1. No pulmonary embolus identified. 2. Airspace opacities in interlobular septal thickening in the mid and lower lung zones. Finding are consistent with pulmonary edema and/or pneumonia. 3. Small left pleural effusion. 4. Mild mediastinal and bilateral hilar lymphadenopathy, likely reactive. Reviewed, dictated and finalized at location A. IMPRESSION: 1. No pulmonary embolus identified. 2. Airspace opacities in interlobular septal thickening in the mid and lower luca ng zones. Finding are consistent with pulmonary edema and/or pneumonia. 3. Small left pleural effusion. 4. Mild mediastinal and bilateral hilar lymphadenopathy, likely reactive.
--- NOTE | ~2022-03-25 | XR_ITS ---
EXAMINATION: XR chest 2V DATE: 03/25/2022 09:00 INDICATION: Chest pain. Shortness of breath. TECHNIQUE: Frontal and lateral views of the chest were obtained. COMPARISON: Chest 2 views 02/15/2018 FINDINGS: There is mild atelectasis at left lung base. No pleural effusion or pneumothorax. The heart size is normal. There are changes of anterior fusion procedure in cervical spine. There is mild lead instructor/flight attendant denise anterior wedging of a midthoracic vertebral body. IMPRESSION: 1. Mild atelectasis at left lung base. Reviewed, dictated and finalized at location A.
--- NOTE | 2022-03-25 08:37 | ECG_ITS ---
Measurements Intervals [place] Rate: 68 P: 4 TN: 149 QRS: 21 QRSD: 94 T: 25 QT: 370 QTc: 396 Interpretive Statements SINUS RHYTHM NO PREVIOUS ECG AVAILABLE FOR COMPARISON Electronically Signed On 03-25-2022 10:05:01 CDT by Vinayak Pavon M.D.
[2022-03-25 08:49] LABS: Basophils Absolute Auto 0.1 K/mm3 (0.0-0.1); Basophils Percent Auto 0.5 % (0.2-1.2); Eosinophils Percent Auto 0.3 % (0-4.4); Hematocrit 40.6 % (37.0-47.0); Hemoglobin 12.7 g/dL (12.0-15.0); Immature Granulocyte Absolute 0.04 K/mm3 (0.00-0.031); Immature Granulocyte Percent A 0.3 % (0-0.5); Lymphocytes Percent Auto 12.7 % (18.3-44.2); Mean Corpuscular HGB Conc 31.3 g/dl (32-36); Mean Corpuscular Hemoglobin 26.7 pg (26-34); Mean Corpuscular Volume 85.5 fl (80-100); Mean Platelet Volume 10.3 fl (7.4-10.4); Monocytes Absolute Auto 0.9 K/mm3 (0.1-0.6); Monocytes Percent Auto 7.6 % (2.6-8.5); Neutrophils Absolute Auto 9.3 K/mm3 (1.3-6.7); Neutrophils Percent Auto 78.6 % (45.5-73.1); Platelet Count Result 307 k/mm3 (150-375); Red Blood Count 4.75 M/mm3 (4.2-5.4); Red Cell Distribution Width 14.7 % (11.5-14.5); White Blood Count 11.9 K/mm3 (4.5-10.0)
[2022-03-25 09:02] LABS: INR 1.2; Prothrombin Time 14.5 Seconds (11.1-14.7)
[2022-03-25 09:03] LABS: Alanine Aminotransferase 18 U/L (6-35); Albumin Level 4.3 g/dL (3.5-5.1); Alkaline Phosphatase 101 U/L (38-126); Anion Gap 7 mmol/L (8-16); Aspartate Amino Transferase 21 U/L (14-36); Bilirubin,Total 0.8 mg/dL (0.2-1.3); Blood Urea Nitrogen 14 mg/dL (7-17); Calcium 8.6 mg/dL (8.4-10.2); Carbon Dioxide 24 mmol/L (22-30); Chloride 105 mmol/L (98-107); Estimated CRCL calculation 136 ml/min; Estimated Glomerular Filt Rate > 60; Glucose 146 mg/dL (65-110); Lipase 31 U/L (23-300); Potassium 3.9 mmol/L (3.4-5.0); Sodium 136 mmol/L (137-145)
[2022-03-25] MEDS: ONDANSETRON INJ 4 MG/2 ML VIAL IV PUSH (09:04)
[2022-03-25] MEDS: MORPHINE SULFATE (*CRX) 4 MG/ML INJ IV PUSH ×2 (09:04→11:54)
[2022-03-25] MEDS: LORazepam INJ (*CRX) 2 MG/ML VIAL 0.5 MG IV PUSH (09:04)
[2022-03-25 09:14] LABS: Troponin I 0.033 ng/mL (0.000-0.034)
--- NOTE | 2022-03-25 09:30 | PC.NURSE ---
Pt. O2 saturations dropped to 89% on room air after morphine administration. Pt. placed on 3L via nasal cannula. Pt. O2 saturations improved to 94%.
[2022-03-25 12:27] LABS: Troponin I 0.028 ng/mL (0.000-0.034)
--- NOTE | 2022-03-25 13:00 | PC.NURSE ---
Pt. removed from oxygen to check room air saturation. Pt. is 94% on room air after being off oxygen for 15 mins.
--- NOTE | 2022-03-25 13:08 | ED.CHESTPAIN ---
HPI - Chest Pain General Chief Complaint: Chest Pain Stated Complaint: chest pain Time Seen by Provider: 03/25/22 08:34 Source: patient and family Mode of arrival: ambulatory Limitations: no limitations History of Present Illness HPI narrative: 61-year-old with a history of CAD, hypertension, chronic neck and back pain here with complaints of chest pain for last 4 days which is continuous in nature. Patient takes hydrocodone and Valium for pain. She has shortness of breath secondary to pain. She denies any fever or chills no history of cough . Patient states that she did not have any stress test because she has a history of SVT. She has not seen a organ assembler for past few years. MD complaint: chest pain Pertinent past history: coronary artery disease Onset (ago): day(s) (4) Timing of current episode: constant Prior episodes: Yes Pain location: right chest Pain radiation: none Severity: moderate Quality: aching Relieving factors: nothing Exacerbating factors: nothing Risk Factors Coronary artery disease risk factors: hypertension Thoracic aortic dissection risk factors: none Related Data On Oral Contraceptives: No Home Medications Medication Instructions Recorded Confirmed duloxetine 30 mg capsule,delayed 30 mg PO DAILY 10/03/21 01/20/22 release Allergies Allergy/AdvReac Type Severity Reaction Status Date / Time cephalexin Allergy Severe rash, Verified 01/20/22 13:17 hives, projectile vomiting isosorbide Allergy Severe Seizure Verified 01/20/22 13:17 propranolol Allergy Severe Seizure Verified 01/20/22 13:17 levofloxacin Allergy Intermediate Hives Verified 01/20/22 13:17 Cephalosporins AdvReac Intermediate N/V; OUT Verified 01/20/22 13:17 OF BODY FEELING/hives diclofenac AdvReac Mild Gastrointestinal Verified 03/25/22 08:44 Upset Review of Systems Review of Systems: All systems reviewed & are unremarkable except as noted in HPI and below Constitutional: Constitutional: Reports no additional constitutional complaints Eyes: Eyes: Reports no additional eye complaints ENT: Reports system reviewed and no additional complaints, except as documented Cardiovascular: Cardiovascular: Reports as per HPI Respiratory: Respiratory: Reports as per HPI Gastrointestinal: Gastrointestinal: Reports no additional gastrointestinal complaints Musculoskeletal: Musculoskeletal: Reports as per HPI Neurologic: Reports system reviewed and no additional complaints, except as documented Psychiatric: Psychiatric: Reports no additional psychiatric complaints Endocrine: Endocrine: Reports no additional endocrine complaints PMFSH Past Medical History Medical History Arthritis Asthma BMI 50.0-59.9, adult CAD (coronary artery disease) Chronic low back pain Gall stones Gallbladder disorder GERD (gastroesophageal reflux disease) Hyperlipidemia Hypersomnia Hypertension Lower extremity surgery planned Morbid obesity Morbid obesity with BMI of 50.0-59.9, adult PSVT (paroxysmal supraventricular tachycardia) Surgical History Surgical History H/O neck surgery H/O tubal ligation H/O: hysterectomy History of bilateral knee arthroplasty History of carpal tunnel surgery bilateral S/P laparoscopic cholecystectomy 03/14/21 Family History Family History Mother Heart disease Hypertension Alzheimer disease Diabetes mellitus Cerebrovascular accident Thyroid disorder Sibling Family history of diabetes mellitus in first degree relative Family history of liver disease Diabetes mellitus Hypertension Heart attack Father Hypertension Heart attack Heart disease Grandparent Carcinoma of colon Hypertension Heart disease Grandparent Lung cancer Social History Social History (Reviewed 01/20/22 @ 13:18 by Sergey Mercado
== END 2022-03-25 14:01 | disposition home or self-care (01) ==
PROVIDERS: Emergency Provider Family Medicine; PCP Internal Medicine
DX: R07.89 Other chest pain (principal); M54.6 Pain in thoracic spine; I25.10 Atherosclerotic heart disease of native coronary artery without angina pectoris; I10 Essential (primary) hypertension; J45.909 Unspecified asthma, uncomplicated; E78.5 Hyperlipidemia, unspecified; K21.9 Gastro-esophageal reflux disease without esophagitis; M19.90 Unspecified osteoarthritis, unspecified site; E66.01 Morbid (severe) obesity due to excess calories; Z68.42 Body mass index [BMI] 45.0-49.9, adult; Z96.653 Presence of artificial knee joint, bilateral; Z87.891 Personal history of nicotine dependence; R91.8 Other nonspecific abnormal finding of lung field
CPT/HCPCS: 36415; 71046; 71275; 80053; 83690; 84484; 85025; 85610; 85730; 93005; 96374; 96375; 96376; 99284; J2060; J2270; J2405; Q9967

== ENCOUNTER → 2022-05-01 12:22 | Outpatient (CLI) | payer BC, SELFPAY ==
--- NOTE | ~2022-05-01 | MR_ITS ---
EXAMINATION: MR cervical spine wo con DATE: 05/01/2022 13:15 INDICATION: Neck pain TECHNIQUE: Magnetic resonance imaging (MRI) of the cervical spine was performed without intravenous c ontrast. Sequences included sagittal T2-weighted FSE, sagittal T2-weighted FS FSE, sagittal T1-weight ed FSE, axial MERGE and axial T2-weighted FSE. COMPARISON: 12/16/2018 FINDINGS: Draining of the normal cervical lordosis. 2 mm anterolisthesis T2 on T3. C4-C7 anterior spinal fusion with interbody fusion devices at each level and with anterior plate and screw fixation at C6-C7. Unf used vertebral body heights are normal. Severe disc height loss at C3-C4 and C7-T1, the latter with m ild fibrofatty degenerative endplate changes. Marrow signal is otherwise unremarkable. Additional mod erate disc height loss at T1-T2 through T3-T4. Annular fissures with small central disc extrusions re sulting in mild central canal stenosis at T1-T2 and T2-T3. Spondylosis in the cervical spine will be discussed and further detailed below. Cord signal intensity is normal. Visualized cervical soft tissu es are unremarkable. The following disc levels are specifically discussed: C2-C3: The disc does not extend beyond the endplate margin. There is no uncovertebral joint osteoarth ritis. There is severe bilateral facet joint osteoarthritis. There is mild bilateral neural foraminal stenosis. There is no central canal stenosis. C3-C4: Disc is bulging. There is mild right and moderate left uncovertebral joint osteoarthritis. The re is moderate right and severe left facet joint osteoarthritis. There is minimal right and mild to m oderate left neural foraminal stenosis. There is mild central canal stenosis with mild in indentation of the ventral surface of the cord. C4-C5: Disc space is fused with mild hypertrophic changes at the uncovertebral joints and posteriorly with left-sided predominance. There is mild bilateral facet joint osteoarthritis. There is no neural foraminal stenosis. There is mild central canal stenosis with indentation of the left ventral surfac e of the cord. C5-C6: Disc space is fused with mild hypertrophic changes posteriorly and at the bilateral uncoverteb ral joints. There is mild bilateral facet joint osteoarthritis. There is mild left neural foraminal s tenosis. There is mild central canal stenosis with mild indentation of the ventral surface of the cor d. C6-C7: Disc space is fused with mild hypertrophy of the uncovertebral joints. There is mild bilateral facet joint osteoarthritis. There is no neural foraminal stenosis. There is mild central canal steno sis. C7-T1: Disc is bulging. There is mild right and moderate left uncovertebral joint osteoarthritis. The re is severe bilateral facet joint osteoarthritis. There is mild bilateral neural foraminal stenosis. There is mild central canal stenosis. IMPRESSION: 1. No significant interval change since 12/16/2018 in severe cervical spondylosis. 2. C4-C7 anterior spinal fusion. Reviewed, dictated and finalized at location A. IMPRESSION: 1. No significant interval change since 12/16/2018 in severe cervical spondylosi s. 2. C4-C7 anterior spinal fusion.
--- NOTE | ~2022-05-01 | MR_ITS ---
EXAMINATION: MR lumbar spine wo con DATE: 05/01/2022 13:20 INDICATION: Back pain TECHNIQUE: Magnetic resonance imaging (MRI) of the lumbar spine was performed without intravenous con trast. Sequences included sagittal T2-weighted FSE, sagittal T2-weighted FS FSE, sagittal T1-weighted FSE, and axial T2-weighted FSE. COMPARISON: 02/21/2021 FINDINGS: 7 degrees lumbar levocurvature. 2 mm retrolisthesis L1 on L2 and L2 on L3. 4 mm retrolisthesis L3 on L4 and 3 mm anterolisthesis L5 on S1. Vertebral body heights are normal. Severe disc height loss at L 5-S1 and severe right-sided predominant disc height loss at L3-L4. Moderate right side predominant di sc height loss at L4-L5. Mild disc height loss at T11-T12 through L2-L3. There is some fibrofatty deg enerative endplate changes at the sites of most severe disc height loss. The conus medullaris termina kaye at L2. There is normal signal in the caudal spinal cord. Paravertebral soft tissues are unremarka ble. The following disc levels are specifically discussed: T12-L1: Disc is bulging. There is moderate bilateral facet joint osteoarthritis. There is mild left n eural foraminal stenosis. There is mild central canal stenosis. L1-L2: Disc is bulging. There is mild left and moderate right facet joint osteoarthritis. There is mi ld bilateral neural foraminal stenosis. There is mild central canal stenosis. L2-L3: Disc is bulging. There is mild left and moderate right facet joint osteoarthritis. There is mi ld bilateral neural foraminal stenosis. There is mild central canal stenosis. L3-L4: Disc is bulging. There is mild left and moderate to severe right facet joint osteoarthritis. T here is mild left and mild to moderate right neural foraminal stenosis. There is mild central canal s tenosis. L4-L5: Disc is bulging with small central disc extrusion with disc material extending up to 4 mm caud al to the level of the superior endplate of L5. There is hypertrophy of the ligamentum flavum. There is severe bilateral facet joint osteoarthritis. There is moderate right and mild to moderate left ne ural foraminal stenosis. There is moderate to severe central canal stenosis. L5-S1: Disc is bulging with annular fissure. The lateral facet joints are fused with severe hypertrop hic changes. There is mild to moderate bilateral neural foraminal stenosis. There is mild central can al stenosis. IMPRESSION: 1. Mild lumbar levocurvature and minimal progression of severe lumbar spondylosis. Reviewed, dictated and finalized at location A. IMPRESSION: 1. Mild lumbar levocurvature and minimal progression of severe lumbar spondylos is.
== END ==
PROVIDERS: PCP Internal Medicine; Visit Provider Neurological Surgery
DX: M54.9 Dorsalgia, unspecified (principal); M54.2 Cervicalgia; M47.816 Spondylosis without myelopathy or radiculopathy, lumbar region; M41.86 Other forms of scoliosis, lumbar region; Z98.1 Arthrodesis status; M47.812 Spondylosis without myelopathy or radiculopathy, cervical region
CPT/HCPCS: 72141; 72148

== ENCOUNTER → 2022-06-20 13:05 | Outpatient (CLI) | payer BC, SELFPAY ==
--- NOTE | ~2022-06-20 | MM_ITS ---
EXAMINATION: MM screening dennis BI w leila HISTORY: Screening mammogram TECHNIQUE: Craniocaudal and mediolateral oblique 3-D tomosynthesis images were obtained and synthetic 2-D images were generated. CAD analysis was submitted and interpreted. COMPARISON: 05/10/2019, 05/06/2017 bilateral screening mammogram examinations BREAST PARENCHYMAL COMPOSITION: There are scattered areas of fibroglandular density. FINDINGS: Stable mild fibroglandular asymmetry, more prominent on the right. There is no evidence of suspicious mass, calcification, or architectural distortion to suggest malignancy in either breast. T here has been no suspicious interval change. IMPRESSION: 1. No mammographic evidence of malignancy. 2. Recommend routine screening mammography in one year. BI-RADS Category 2: Benign finding(s). Reviewed, dictated and finalized at location A.
== END ==
PROVIDERS: PCP Internal Medicine; Visit Provider Internal Medicine
DX: Z12.31 Encounter for screening mammogram for malignant neoplasm of breast (principal)
CPT/HCPCS: 77063; 77067